=== PATIENT | male | born 1970 | race Caucasian/White ===

== ENCOUNTER 2018-03-19 14:54 | Outpatient (CLI) | payer OTHER ==
--- NOTE | 2018-03-19 16:29 | XRAY Report ---
Reason: PAIN IN JOINT, MULTIPLE SITES Procedure Date: 03/19/2018 Accession Number: [id number] / [id number] Procedure: XR - Foot 2 View BILAT CPT Code: FULL RESULT: *EXAMS: 1. Right Foot Radiography 2. Left Foot Radiography EXAM DATE: 03/19/2018 03:14 PM. CLINICAL HISTORY: Bilateral foot pain x several months. No known injury. COMPARISON: None. TECHNIQUE: 2 views each foot. FINDINGS: Right: Bones: Bipartite sesamoid bones. No fractures or bone lesions. Joints: Normal. No subluxations. Soft Tissues: Normal. No soft tissue swelling. Left: Bones: Bipartite sesamoid bones. No fractures or bone lesions. Joints: Normal. No subluxations. Soft Tissues: Normal. No soft tissue swelling. IMPRESSION: Bipartite sesamoid bones bilaterally with no other radiographic abnormalities detected. [facility]
== END 2018-03-19 14:55 | disposition home or self-care (01) ==
LOC: DI 14:54
PROVIDERS: ATTEND Internal Medicine Rheumatology
DX: M25.50 Pain in unspecified joint (principal)

== ENCOUNTER 2019-01-30 06:33 | Outpatient (CLI) | payer OTHER ==
--- NOTE | 2019-01-30 16:42 | XRAY Report ---
Reason: [facility] Procedure Date: 01/30/2019 Accession Number: [id number] / [id number] Procedure: XR - Chest 2 View X-Ray CPT Code: 30570 Final Report FULL RESULT: EXAM: CHEST RADIOGRAPHY EXAM DATE: 01/30/2019 06:55 AM. CLINICAL HISTORY: [facility]. COMPARISON: None. TECHNIQUE: 2 views. FINDINGS: Lungs/Pleura: No focal opacities evident. No pleural effusion. No pneumothorax. Normal volumes. Mediastinum: Heart and mediastinal contours are unremarkable. Other: None. IMPRESSION: No acute cardiopulmonary abnormality. [facility]
== END 2019-01-30 06:34 | disposition home or self-care (01) ==
LOC: DI 06:33
PROVIDERS: ATTEND Physician Assistant Medical
DX: L29.8 Other pruritus (principal)
CPT/HCPCS: 71046

== ENCOUNTER 2021-02-15 12:40 | Outpatient (CLI) | payer OTHER ==
--- NOTE | 2021-02-15 17:10 | DEXA Report ---
PROCEDURE: Dexa Spine and/or Hip INDICATIONS: SCREENING FOR OSTEOPOROSIS, CHRONIC PREDNISONE USE TECHNIQUE: Dual energy x-ray absorptiometry (DXA) was performed on a [employer] System. Regions measur ed are the AP Spine, femoral neck, and if needed forearm. COMPARISON: None. FINDINGS: Lumbar Spine: Bone Mineral Density 1.3-1 g/cm/cm,T score 0.8, normal Left Hip: Bone Mineral Density 1.287 g/cm/cm,T score 1.3, normal Left Femoral Neck: Bone Mineral Density 1.240 g/cm/cm, T score 1.3, normal (T score greater or equal to -1.0: NORMAL) (T score from -1.1 to -2.4: OSTEOPENIA) (T score less than or equal to -2.5 to: OSTEOPOROSIS) Impression: Normal bone marrow density. Patients with diagnosis of osteoporosis or osteopenia should have regular bone mineral density assess ment. For those eligible for Medicare, routine testing is allowed once every 2 years. Testing frequ ency can be increased for patients who have rapidly progressing disease or for those who are receivin g medical therapy to restore bone mass. Reviewed by: Bridgette Darling MD, PhD on 02/15/2021 5:09 PM PST Approved by: Bridgette Darling MD, PhD on 02/15/2021 5:09 PM PST Station ID: [id number]
== END 2021-02-15 12:41 | disposition home or self-care (01) ==
LOC: DI 12:40
PROVIDERS: ATTEND Family Medicine
DX: Z13.820 Encounter for screening for osteoporosis (principal); D84.9 Immunodeficiency, unspecified; Z79.52 Long term (current) use of systemic steroids